=== PATIENT | female | born 1990 | race Caucasian/White ===

== ENCOUNTER 2022-01-14 15:28 | Outpatient (REF) | payer OTHER, SELFPAY ==
[2022-01-15 08:53] LABS: BV Int Neg Control Negative (Negative); BV Int Pos Control Positive (Positive)
[2022-01-15 09:10] LABS: CT PCR NOT DETECTED (Not Detect.); NG PCR NOT DETECTED (Not Detect.)
[2022-01-21 02:13] LABS: HPV mRNA E6/E7 rflx Not Detected (Not Detected)
== END 2022-01-14 15:29 | disposition home or self-care (01) ==
LOC: HO.LAB 15:28
PROVIDERS: Visit Provider Advanced Practice Midwife
DX: Z01.419 Encounter for gynecological examination (general) (routine) without abnormal findings (principal); Z11.3 Encounter for screening for infections with a predominantly sexual mode of transmission
CPT/HCPCS: 87480; 87491; 87510; 87591; 87624; 87660; 88142

== ENCOUNTER 2023-02-10 13:59 | Outpatient (REF) | payer OTHER, SELFPAY ==
[2023-02-11 11:59] LABS: CT PCR NOT DETECTED (Not Detect.); NG PCR NOT DETECTED (Not Detect.)
[2023-02-11 13:31] LABS: BV Int Neg Control Negative (Negative); BV Int Pos Control Positive (Positive)
== END 2023-02-10 14:00 | disposition home or self-care (01) ==
LOC: HO.LNP 13:59
PROVIDERS: PCP Nurse Practitioner Family; Visit Provider Advanced Practice Midwife
DX: Z01.419 Encounter for gynecological examination (general) (routine) without abnormal findings (principal); Z20.2 Contact with and (suspected) exposure to infections with a predominantly sexual mode of transmission
CPT/HCPCS: 0353U; 87480; 87510; 87660

== ENCOUNTER 2023-02-10 13:59 | Outpatient (AMB) | payer OTHER, SELFPAY ==
[2023-02-10 14:00] VITALS: BP 118/64; BMI 26.1
--- NOTE | 2023-02-10 14:00 | A.OFFVIS_ITS ---
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 She gets her period Once a month pretty regular the last 6-7 days and is normal and expects her period any day now. She is physically active and keeps in shape and goes to the gym and walks. 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 so she has been enjoying outside activities [facility] Medical History Encounter to establish care Surgical History No pertinent past surgical history Family History Father Myocardial infarct Diabetes Mother Stroke Social History Housing: House Patient Tobacco Use Status: Never used Tobacco e-Cigarette/Vaping Use: Never Used service: No Current occupational status: employed Current occupational exposures/hazards: No Cognitive needs: No Hearing needs: No Vision needs: Yes Female Reproductive History Menstrual Age of Menarche: 10 Date of last menstrual period: 01/11/23 Total pregnancies: 1 Number of Living Children: 1 Date of last pap smear: 01/14/22 (wnl) Physical Exam Vital Signs: Last Vital Signs BP 118/64 02/10/23 14:00 BMI result Body Mass Index 26.1 Const General: healthy appearing, comfortable, no acute distress, well developed and alert Nutritional Appearance: average body habitus Orientation/consciousness: patient oriented x3 Limitations: no limitations HEENT Head: Yes normocephalic Neck Neck: Yes normal visual inspection Chest Chest palpation & inspection: normal inspection of the chest Breast/axilla inspection: normal inspection of the breasts and normal inspection of the axillae Breast/axilla palpation: normal palpation of the breasts and normal palpation of the axillae Resp Effort & Inspection: normal respiratory effort GI Inspection: Yes normal to inspection, No Abdominal wall edema and No distended Palpation (GI): Soft to palpation and nontender General: Yes bladder normal to palpation External Female Exam: normal external appearance and normal appearance of the urethra Speculum Exam - Vagina: normal appearance of the vagina, normal palpation and normal vaginal discharge Speculum Exam - Cervix: normal appearance of the cervix, normal palpation and nontender Bimanual exam- vagina & uterus: normal bimanual exam, normal palpation, uterine size normal, bladder normal to palpation, consistency normal, normal palpation, uterine mobility normal, uterine shape normal, No Cervical tenderness present, non-tender and no cervical motion tenderness Bimanual Exam- Adnexa, other: normal adnexae, no masses, normal and No adnexal tenderness Neuro General: patient oriented x3 Results Reviewed Results Reviewed: Name:CharitoNoemi Castaneda Age/Sex: 31/F Attending: Noemi Alfaro CNM : 1990 Submitted by: Noemi Alfaro CNM Copies to: MR #: [id number] ? Status: DEP REF Collected: 01/14/22 Location: .LAB Received: 01/15/22 Interpretation Satisfactory for evaluation. Negative for intraepithelial lesion or malignancy. HPV mRNA E6/E7:? NOT DETECTED This assay detects E6/E7 viral messenger RNA (mRNA) from 14 high-risk HPV types (16, 18, 31, 33, 35, 39, 45, 51, 52, 56, 58, 59, 66, 68) HPV testing performed by [facility], [place], [place].? See reference laboratory pion of the EMR for entire report. Clinical Information LMP:12/2021 Previous PAP test:Unknown date,WNL Material Received ThinPrep-Cervical Electronically Signed By: JASPER Stevens (ASCP) ? 01/30/22 0942 The Pap Test is a screening procedure with the inherent possibility of both false negative and false positive results.? Results should be interpreted in the context of historic and current clinical findi Assessment & Plan Assessment & Plan (1) Well woman exam with routine gynecological exam: Code(s): Z01.419 - Encounter for gynecological examination (general) (routine) without abnormal findings (2) Screening for malignant neoplasm of cervix: Comment: pap done 01/14/22. ( prev paps normal 2004, 2005, 2007, 2009.) 01/14/2022 Pap negative with negative HPV. Code(s): Z12.4 - Encounter for screening for malignant neoplasm of cervix (3) Screen for sexually transmitted diseases: Code(s): Z11.3 - Encounter for screening for infections with a predominantly sexual mode of transmission Plan -----Discussed in this visit the following: healthy balanced diet, regular and consistent exercise, getting recommended health screens, doing the best she can for her particular health concerns, kegel exercises, pap smear screening and followup recommendations, mammography screening and SBE, normal changes in cycles in her life stage--- . Coding Level of Care Code Est Pt Prev Care 18-39y(44743) Diagnoses Well woman exam with routine gynecological exam Z01.419 Screening for malignant neoplasm of cervix Z12.4 Screen for sexually transmitted diseases Z11.3
== END 2023-02-10 14:41 | disposition home or self-care (01) ==
LOC: HO.HWS 13:59
PROVIDERS: PCP Nurse Practitioner Family; Visit Provider Advanced Practice Midwife
DX: Z01.419 Encounter for gynecological examination (general) (routine) without abnormal findings (principal); Z11.3 Encounter for screening for infections with a predominantly sexual mode of transmission
CPT/HCPCS: 99395

== ENCOUNTER 2024-03-01 10:21 | Outpatient (REF) | payer BC, SELFPAY ==
[2024-03-02 06:01] LABS: CT PCR NOT DETECTED (Not Detect.); NG PCR NOT DETECTED (Not Detect.)
[2024-03-02 08:53] LABS: Bacterial Vaginosis PCR NEGATIVE (Negative); Candida Group PCR NOT DETECTED (Not Detect); Candida glab krusei PCR NOT DETECTED (Not Detect); Trichomonas vaginalis PCR NOT DETECTED (Not Detect)
== END 2024-03-01 10:22 | disposition home or self-care (01) ==
LOC: HO.LAB 10:21
PROVIDERS: PCP Nurse Practitioner Family; Visit Provider Advanced Practice Midwife
DX: Z20.2 Contact with and (suspected) exposure to infections with a predominantly sexual mode of transmission (principal); N89.8 Other specified noninflammatory disorders of vagina
CPT/HCPCS: 0352U; 87491; 87591

== ENCOUNTER 2024-03-01 10:21 | Outpatient (AMB) | payer BC, SELFPAY ==
[2024-03-01 10:36] VITALS: BP 110/70; BMI 26.3
--- NOTE | 2024-03-01 10:36 | A.OFFVIS_ITS ---
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 She is not contraceptive thing she be open to if it happens she is not interested contraceptive thing she is unclear if is something she would want pursue more actively or avoid more actively. She is off for the summer and she will be going to [place] for vacation she has been working out in gym. She has no special worries but she is interested in STI testing. [facility] Medical History Encounter to establish care Surgical History No pertinent past surgical history Family History Father Myocardial infarct Diabetes Mother Stroke Social History Housing: House Patient Tobacco Use Status: Never used Tobacco e-Cigarette/Vaping Use: Never Used service: No Current occupational status: employed Current occupational exposures/hazards: No Cognitive needs: No Hearing needs: No Vision needs: Yes Female Reproductive History Menstrual Age of Menarche: 10 Duration of menses: 6-7 days Date of last menstrual period: 02/04/24 control method: none Total pregnancies: 1 Full term: 1 Date of last pap smear: 01/15/22 (negative) History of abnormal pap smear: No Physical Exam Vital Signs: Last Vital Signs BP 110/70 03/01/24 10:36 BMI result Body Mass Index 26.3 Const General: healthy appearing, comfortable, no acute distress, well developed and alert Nutritional Appearance: average body habitus Orientation/consciousness: patient oriented x3 Limitations: no limitations HEENT Head: Yes normocephalic Neck Neck: Yes normal visual inspection Chest Chest palpation & inspection: normal inspection of the chest Breast/axilla inspection: normal inspection of the breasts and normal inspection of the axillae Breast/axilla palpation: normal palpation of the breasts and normal palpation of the axillae Resp Effort & Inspection: normal respiratory effort GI Inspection: Yes normal to inspection, No Abdominal wall edema and No distended Palpation (GI): Soft to palpation and nontender Other: External exam within normal limits vagina is pink and moist cervix difficult to visualize secondary to very very posterior but it is long close thick mobile nontender uterus anteverted to midposition mobile nontender adnexa nontender very good tone with Kegel. General: Yes bladder normal to palpation External Female Exam: normal external appearance and normal appearance of the urethra Speculum Exam - Vagina: normal appearance of the vagina, normal palpation and normal vaginal discharge Speculum Exam - Cervix: normal appearance of the cervix, normal palpation and nontender Bimanual exam- vagina & uterus: normal bimanual exam, normal palpation, uterine size normal, bladder normal to palpation, consistency normal, normal palpation, uterine mobility normal, uterine shape normal, No Cervical tenderness present, non-tender and no cervical motion tenderness Bimanual Exam- Adnexa, other: normal adnexae, no masses, normal and No adnexal tenderness Neuro General: patient oriented x3 Results Reviewed Results Reviewed: Name: Noemi Castaneda Age/Sex: 31/F Attending: Noemi Alfaro CNM : 1990 Submitted by: Noemi Alfaro CNM Copies to: MR #: [id number] Status: DEP REF Collected: 01/14/22 Location: .LAB Received: 01/15/22 Interpretation Satisfactory for evaluation. Negative for intraepithelial lesion or malignancy. HPV mRNA E6/E7: NOT DETECTED This assay detects E6/E7 viral messenger RNA (mRNA) from 14 high-risk HPV types (16, 18, 31, 33, 35, 39, 45, 51, 52, 56, 58, 59, 66, 68) HPV testing performed by [facility], [place], [place]. See reference laboratory pion of the EMR for entire report. Clinical Information LMP:12/2021 Previous PAP test:Unknown date,WNL Material Received ThinPrep-Cervical Electronically Signed By: JASPER Stevens (ASCP) 01/30/22 0942 The Pap Test is a screening procedure with the inherent possibility of both false negative and false positive results. Results should be interpreted in the context of historic and current clinical findings. Reliability of the Pap Test is enhanced by performing the test on a regular repetitive basis. Patient: Noemi Castaneda Age/Sex: 31/F MR#: [id number] Page 1 of 1 Assessment & Plan Assessment & Plan (1) Screen for sexually transmitted diseases: Code(s): Z11.3 - Encounter for screening for infections with a predominantly sexual mode of transmission Category: Medical (2) Screening for malignant neoplasm of cervix: Comment: pap done 01/14/22. ( prev paps normal 2004, 2005, 2007, 2009.) 01/14/2022 Pap negative with negative HPV. Code(s): Z12.4 - Encounter for screening for malignant neoplasm of cervix Category: Medical (3) Well woman exam with routine gynecological exam: Code(s): Z01.419 - Encounter for gynecological examination (general) (routine) without abnormal findings Category: Medical Plan -----Discussed in this visit the following: healthy balanced diet, regular and consistent exercise, getting recommended health screens, doing the best she can for her particular health concerns, kegel exercises, pap smear screening and followup recommendations, mammography screening and SBE, normal changes in cycles in her life stage--- . Reviewed that if she did want to pursue more actively 1 step would be at least being very clear about her cycle and following it in keeping track of ovulation both in terms of symptoms and more actively if she did not get in 6 months and had good records she might wish to pursue getting referral to [place] [facility] put if it is not a concern for her then it is not a problem discussed that fertility is always possible but does wane with advancing years. She thinks she is interested in STI blood work testing reviewed that if she is waiting for her new PCC to the assigned to her in we will be getting fasting blood work she can do all the blood work same time she does not know for sure if she is on portal and not she thinks she might be but may not remember her password. She has access to getting information if she needs it. Reviewed that we would call for positive results but not for negatives. Orders: Orders Hepatitis B Surface Antigen Today Z01.419 - Encounter for gynecological examination (general) (routine) without abnormal findings, Z11.3 - Encounter for screening for infections with a predominantly sexual mode of transmission, Z12.4 - Encounter for screening for malignant neoplasm of cervix Hepatitis C Antibody Today Z01.419 - Encounter for gynecological examination (general) (routine) without abnormal findings, Z11.3 - Encounter for screening for infections with a predominantly sexual mode of transmission, Z12.4 - Encounter for screening for malignant neoplasm of cervix Syphilis Screen Today Z01.419 - Encounter for gynecological examination (general) (routine) without abnormal findings, Z11.3 - Encounter for screening for infections with a predominantly sexual mode of transmission, Z12.4 - Encounter for screening for malignant neoplasm of cervix HIV Ab/Ag Today Z01.419 - Encounter for gynecological examination (general) (routine) without abnormal findings, Z11.3 - Encounter for screening for infections with a predominantly sexual mode of transmission, Z12.4 - Encounter for screening for malignant neoplasm of cervix Coding Level of Care Code Est Pt Prev Care 18-39y(34281) Diagnoses Screen for sexually transmitted diseases Z11.3 Screening for malignant neoplasm of cervix Z12.4 Well woman exam with routine gynecological exam Z01.419
== END 2024-03-01 11:18 | disposition home or self-care (01) ==
LOC: HO.HWSM 10:21
PROVIDERS: PCP Nurse Practitioner Family; Visit Provider Advanced Practice Midwife
DX: Z01.419 Encounter for gynecological examination (general) (routine) without abnormal findings (principal)
CPT/HCPCS: 99395

== ENCOUNTER 2025-07-25 09:02 | Outpatient (REF) | payer BC, SELFPAY ==
[2025-07-25 23:02] LABS: CT PCR NOT DETECTED (Not Detect.); NG PCR NOT DETECTED (Not Detect.)
== END 2025-07-25 09:03 | disposition home or self-care (01) ==
LOC: HO.LNP 09:02
PROVIDERS: Visit Provider Advanced Practice Midwife
DX: Z01.419 Encounter for gynecological examination (general) (routine) without abnormal findings (principal); Z20.2 Contact with and (suspected) exposure to infections with a predominantly sexual mode of transmission; Z12.39 Encounter for other screening for malignant neoplasm of breast
CPT/HCPCS: 87491; 87591; 87626; 88175

== ENCOUNTER 2025-07-31 14:29 | Outpatient (AMB) | payer BC, SELFPAY ==
--- NOTE | 2025-07-31 14:33 | A.OFFPC_ITS ---
Vital Signs 07/31/25 14:34 Height 5 ft 5 in Weight 167 lb 6 oz BMI 27.8 BP 118/76 Blood Pressure Location Lt brachial Position Sitting Pulse 66 Pulse Source Pulse Oximeter Temp 97.3 F Temp Source Temporal Artery Scan Pulse Oximetry (%) 99 Oxygen Delivery Method Room Air Intake Visit Reasons: PETTY Back pain Allergies procaine (From NOVOCAIN) Allergy (Severe, Verified 07/31/25 14:36) ANGIOEDEMA Medication List - Last Reconciled 07/31/25 by Iram Pal MD No Known Home Meds Tobacco use date assessed: 07/31/25 Dental Screening Dental Screen Date: 07/31/25 Did you have a dental visit in the last 12 months?: Yes Did you have a dental problem in the last 6 months where you did not have access to dental care?: No Was dental information given to patient?: Patient has dentist HPI HPI Comments History of Present Illness Details The patient is a 35 year old female presenting to [facility] and for annual physical. She denies any known medical problems and is not on any medications, supplements, or [id number] drugs. The patient's father has a history of type 2 diabetes, while both parents have hypertension and high cholesterol. Her mother has a history of a stroke. She denies any family history of cancer. 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 She has smoked marijuana recreationally a couple of times a week for about 20 years but denies ever smoking cigarettes. She drinks alcohol a couple of times per week, consuming approximately four beers at a time. She recently underwent a Pap smear with her NOTCHING MACHINE OPERATOR and is awaiting the results. Her tetanus vaccination is from 12/2021. Declines Flu vaccine today. [facility] Medical History Screen for sexually transmitted diseases Screening for malignant neoplasm of cervix Well woman exam with routine gynecological exam Encounter to [facility] Surgical History No pertinent past surgical history Family History Father Myocardial infarct Diabetes Mother Stroke Social History Household Members: Significant Other Housing: House Alcohol intake: current Comment: ocassional Patient Tobacco Use Status: Never used Tobacco e-Cigarette/Vaping Use: Never Used Substance Use Type: Marijuana service: No Current occupational status: employed 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 1. Little interest or pleasure in doing things: not at all 2. Feeling down, depressed, or hopeless: not at all 3. Trouble falling or staying asleep, or sleeping too much: not at all 4. Feeling tired or having little energy: not at all 5. Poor appetite or overeating: not at all 6. Feeling bad about yourself - or that you are a failure or have let yourself or your family down: not at all 7. Trouble concentrating on things, such as reading the newspaper or watching television: not at all 8. Moving or speaking so slowly that other people could have noticed. Or the op posite - being so fidgety or restless that you have been moving around a lot more than usual: not at all 9. Thoughts that you would be better off or of hurting yourself in some way: not at all Total score: 0 Depression Screening Interpretation: Negative Depression Screening Done: Yes [id number] - PHQ-9 Billing: Yes Source: Developed by Drs. Rambo Mckeon, Ana Bishop, Nolan Claudio and colleagues, with an educational elena from [employer]. Thrive Questionnaire Date Thrive assessed: 07/31/25 I am a: Patient What is your living situation today?: I have a steady place to live Within the past 12 months, did the food you bought not last and you didn't have the money to get more?: Never true Within the past 12 months, did you worry whether your food would run out before you got money to buy more?: Never true Do you have trouble paying for medicines?: No Do you have trouble getting transportation to medical appointments?: No Do you have trouble paying your heating and electricity bill?: No Do you have trouble taking care of your child, family member or friend?: No Do you have trouble with day-to-day activities such as bathing, preparing meals, shopping, managing finances, etc.?: No Are you currently unemployed and looking for a job?: No Are you interested in more education?: No Please select the resources that you would like help with: None Currently or been in a relationship where the following occur: No concerns reported THRIVE Score: 0 AUDIT C Alcohol Use Questionnaire (AUDIT-C) 1. How often do you have a drink containing alcohol?: 2-3 times a week 2. How many drinks containing alcohol do you have on a typical day when you are drinking?: 3 or 4 3. How often do you have six or more drinks on one occasion?: Less than monthly Total Score: 5 SHAZIA-7 AMB Questionnaire SHAZIA-7 Date SHAZIA - 7 assessed: 07/31/25 Feeling nervous, anxious, or on edge: 0 = Not at all Not being able to stop or control worryin = Not at all Worrying too much about different things: 0 = Not at all Trouble relaxin = Not at all Being so restless that it is hard to sit still: 0 = Not at all Becoming easily annoyed or irritable: 0 = Not at all Feeling afraid as if something awful might happen: 0 = Not at all Total SHAZIA-7 score (0-4 normal; 5-9 mild; 10-14 moderate; 15-21 severe): 0 Source: Developed by Drs. Rambo Mckeon, Ana Bishop, Nolan Claudio and colleagues, with an educational elena from [employer]. SHAZIA-7 Assessment Billing SHAZIA-7 Assessment Tool: SHAZIA-7 Assessment 41613 Physical exam (Primary Care) Vital Signs: Last Vital Signs Temp 97.3 F 07/31/25 14:34 Pulse 66 07/31/25 14:34 BP 118/76 07/31/25 14:34 Pulse Ox 99 07/31/25 14:34 Oxygen Delivery Method Room Air 07/31/25 14:34 General: Well-appearing, alert, oriented ?3, in no acute distress. HEENT: Normocephalic, atraumatic, PERRLA, EOMI, no scleral icterus. External ears normal, tympanic membranes intact bilaterally, no erythema or effusion. Nares patent, normal mucosa pink, no discharge. No oral lesions, or pharyngeal erythema. Neck Supple. Cardiovascular: RRR, S1-S2 appreciated, no murmurs, rubs or gallops. Respiratory: Lungs clear to auscultation bilaterally, no wheezes, rales or rhonchi. Abdomen: Soft, nontender, nondistended. Normoactive bowel sounds. s Neurologic: Alert and oriented X3, cranial nerves II?XII grossly intact, sensation and strength intact in bilateral lower and upper extremities. BMI result Body Mass Index 27.8 Tobacco/Smoking Status: Tobacco use Status Tobacco use date assessed 07/31/25 07/31/25 14:37 Patient Tobacco Use Status Never used Tobacco 07/31/25 14:37 e-Cigarette/Vaping Use Never Used 07/31/25 14:37 PHQ-9: PHQ-9 Score PHQ-9: Total score 0 07/31/25 14:37 Depression Screening Interpretation: Negative Thrive Assessment: Date of Thrive Assessment Date Thrive assessed 07/31/25 07/31/25 14:37 Currently or been in a relationship where the following occur: No concerns reported Coding Level of Care Code New Pt Prev Care 18-39yr(90393 Diagnoses Adult general medical exam Z00.00 Screening for diabetes mellitus Z13. Screening for hyperlipidemia Z13. Additional Codes SHAZIA-7 Assessment Billing - SHAZIA-7 Assessment Tool: SHAZIA-7 Assessment 62504 ([id number]) PHQ-9 - 40491 - PHQ-9 Billing: Yes ([id number]) Assessment & Plan Assessment & Plan (1) Adult general medical exam: Code(s): Z00.00 - Encounter for general adult medical examination without abnormal findings Category: Medical Plan: Pap smear 07/25/25 - results pending Tdap 12/2021 Declines flu vaccine today (2) Screening for diabetes mellitus: Code(s): Z13.1 - Encounter for screening for diabetes mellitus Category: Medical Plan: Obtain A1c, CMP (3) Screening for hyperlipidemia: Code(s): Z13.220 - Encounter for screening for lipoid disorders Category: Medical Plan: Obtain lipid panel Orders: Orders Complete Blood Count Auto Diff Today Z00.00 - Encounter for general adult medical examination without abnormal findings Hemoglobin A1c Today Z13.1 - Encounter for screening for diabetes mellitus Comprehensive Met. Panel Today Z00.00 - Encounter for general adult medical examination without abnormal findings Vitamin D 25-OH (D2 and D3) Today Z13.21 - Encounter for screening for nutritional disorder Lipid Panel with Reflex Today Z13.220 - Encounter for screening for lipoid disorders
[2025-07-31 14:34] VITALS: BP 118/76; PULSE 66; TEMP 36.3; O2SAT 99; BMI 27.8
--- OUTSIDE RECORDS SUMMARY | 2025-07-31 16:51 | XMS_ITS | Encounter Summary ---
Author Organization [facility] Address [address] [place] [phone] Phone Care Team Providers Care Rib Chopper Name Role Phone Nichole Win MD Primary Care Provider Unava ilable Encounter Details Date Type Department Care Team (Late st Contact Info) Description 03/19/2017 Conversion Encounter [facility] - [address] [address] Social History Tobacco Use Types Packs/Day Years Used Date Smoking Tobacco: Never Assessed Comments Unknown Sex and Gender Information Value Date Recorded Sex Assigned at Not on file Legal Sex Female 4:26 PM EDT Gender Identity Not on file Sexual Orientation Not on file documented as of this encounter Plan of Treatment Not on file documented as of this encounter Visit Diagnoses Not on filedocumented in this encounter Care Teams Rib Chopper Relationship Specialty Start Date End Date Nichole Win MD PCP - General 03/13/17 documented as of this encounter
--- OUTSIDE RECORDS SUMMARY | 2025-07-31 16:51 | XMS_ITS | Clinical Summary ---
Author Organization [facility] Address [address] [place] [address] Phone Care Team Providers Care Information Writer Name Role Phone Nichole Win MD Primary Care Provider Unava ilable Immunizations Immunization Administration Dates Next Due DTP 05/02/1993, 0,1988,1988,1988 Hep B, ped/adol 12/01/1999,08/02/1999,07/02/1999 Hib (PRP-T) 11/26/1989 MMR 10/04/1999,08/18/1989 OPV 05/02/1993, 0,1988,1988 Td (adult) (MBL), 2 Lf tetan us toxoid, PF, adsorbed 10/04/1999 Social History Tobacco Use Types Packs/Day Years Used Date Smoking Tobacco: Never Assessed Comments Unknown Sex and Gender Information Value Date Recorded Sex Assigned at Not on file Legal Sex Female 4:26 PM EDT Gender Identity Not on file Sexual Orientation Not on file Plan of Treatment Health Maintenance Due Date Last Done Comments DTaP,Tdap,and Td Vaccines (6 - Tdap) 10/05/1999 10/04/1999, 05/02/1993, 11/26/1989, Additional history exists Varicella Vaccines (1 of 2 - 13+ 2-dose series) 2001 HPV Vaccines (1 - 3-dose SCDM series) 2015 Influenza Vaccines (#1) 2025 COVID-19 Vaccine ( - 2024- season) 2025 HIB Vaccines Completed 11/26/1989 IPV Vaccines Completed 05/02/1993, 11/02, 1988, Additional history exists MMR Vaccines Completed 10/04/1999, 08/18/1989 Hepatitis B Vaccines Completed 12/01/1999, 08/02/1999, 07/02/1999 Hepatitis A Vaccines Aged Out No long er eligible based on patient's age to complete this topic Men B Vaccine Aged Out No longer elig ible based on patient's age to complete this topic Meningococcal Vaccine Aged Out No marycarmen ethan eligible based on patient's age to complete this topic Pneumococcal Vaccine Aged Out No long er eligible based on patient's age to complete this topic Care Teams Information Writer Relationship Specialty Start Date End Date Nichole Win MD PCP - General 03/13/17
== END 2025-07-31 14:51 | disposition home or self-care (01) ==
LOC: HO.HMCH 14:29
PROVIDERS: PCP Student in an Organized Health Care Education/Training Program; Visit Provider Student in an Organized Health Care Education/Training Program
DX: Z00.00 Encounter for general adult medical examination without abnormal findings (principal); Z13.1 Encounter for screening for diabetes mellitus; Z13.220 Encounter for screening for lipoid disorders

== ENCOUNTER → 2025-07-31 14:29 | Outpatient (BNVA) | payer BC, SELFPAY | PROVIDERS: Visit Provider Student in an Organized Health Care Education/Training Program | DX: Z00.00 Encounter for general adult medical examination without abnormal findings (principal); Z13.1 Encounter for screening for diabetes mellitus; Z13.220 Encounter for screening for lipoid disorders | CPT/HCPCS: 96127 ==